=== PATIENT | male | born 1990 | race Caucasian/White ===

== ENCOUNTER 2023-06-20 15:52 | Emergency (ER) | payer BC ==
[~2023-06-20] VITALS: Ht 177.8 cm; Wt 74.0 kg
[2023-06-20 15:56] VITALS: BP 118/70; PULSE 96; RESP 16; TEMP 98.2; O2SAT 99
[2023-06-20] MEDS ORDERED: TETANUS, DIPHTHERIA, PERTUSSIS VAC/PF 0.5ML (>10YR OLD) IM ONE (17:45)
== END 2023-06-20 19:06 | disposition home or self-care (01) ==
LOC: ER 15:52
DX: S01.111A Laceration without foreign body of right eyelid and periocular area, initial encounter (principal); S09.90XA Unspecified injury of head, initial encounter; Z88.2 Allergy status to sulfonamides; V89.2XXA Person injured in unspecified motor-vehicle accident, traffic, initial encounter; Y93.89 Activity, other specified; Y92.89 Other specified places as the place of occurrence of the external cause; Y99.8 Other external cause status
CPT/HCPCS: 90715; 12013; 90471; 99283; Z7610; 96372